=== PATIENT | female | born 1985 | race African-American/Black ===

== ENCOUNTER 2019-05-11 14:59 | Emergency (ER) | payer BC ==
[~2019-05-11] VITALS: Ht 165.1 cm; Wt 80.0 kg
[2019-05-11 18:34] LABS: CHLORIDE 107 mEq/L (98-107)
[2019-05-11 18:39] LABS: BASOPHILS % 0.7 % (0.0-2.0); EOSINOPHILS % 0.9 % (0.0-5.0); HEMATOCRIT. 44.4 % (36.0-48.0); HEMOGLOBIN. 14.5 g/dL (12.0-16.0); LYMPHOCYTES % 38.7 % (20.0-50.0); MEAN CORPUSCULAR HEMOGLOBIN 25.7 pg (28.0-32.0); MEAN CORPUSCULAR VOLUME 79.1 fL (81.0-99.0); MEAN PLATELET VOLUME 7.7 fl (7.4-10.4); MONOCYTES % 6.4 % (2.0-8.0); NEUTROPHILS % 53.3 % (40.0-76.0); PLATELET 364 x1000/uL (130-400); RED BLOOD CELL COUNT 5.62 mill/uL (4.2-5.4); RED CELL DISTRIBUTION WIDTH 16.3 % (11.6-14.6)
[2019-05-11 18:45] LABS: B-HCG QUANTITATIVE 102 mIU/mL (<3)
[2019-05-11 19:10] LABS: CLARITY URINE CLEAR (CLEAR); COLOR URINE YELLOW (YELLOW); KETONES URINE NEGATIVE (NEGATIVE); LEUKOCYTE ESTERASE URINE NEGATIVE (NEGATIVE); NITRITE URINE NEGATIVE (NEGATIVE); OCCULT BLOOD URINE 3+ (NEGATIVE); PH URINE 5.5 (4.5-8.0); PROTEIN URINE TRACE (NEGATIVE); UROBILINOGEN URINE 0.2 E.U./dL (0.2-1.0)
[2019-05-11 20:57] VITALS: BP 123/79
== END 2019-05-11 21:03 | disposition home or self-care (01) ==
LOC: ER 14:59
DX: O20.0 Threatened abortion (principal); Z3A.01 Less than 8 weeks gestation of pregnancy
CPT/HCPCS: 36415; 76801; 80053; 81003; 81025; 84702; 85025; 86850; 86900; 99284

== ENCOUNTER 2019-05-13 09:58 | Emergency (ER) | payer BC ==
[~2019-05-13] VITALS: Ht 147.3 cm; Wt 87.0 kg
[2019-05-13 10:52] VITALS: BP 111/72
== END 2019-05-13 17:11 | disposition left against medical advice (07) ==
LOC: ER 09:58
DX: Z53.21 Procedure and treatment not carried out due to patient leaving prior to being seen by health care provider (principal)